=== PATIENT | male | born 1960 | race Caucasian/White ===

== ENCOUNTER 2021-03-13 15:08 | Emergency (ER) | payer OTHER ==
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
[2021-03-13] MEDS ORDERED: DEXAMETHASONE 10 MG/ML VIAL PO STA (18:01)
[2021-03-13] MEDS ORDERED: CHERRY SYRUP 10 ML UDC PO ONE (18:01)
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
[2021-03-13 18:13] VITALS: BP 149/89
== END 2021-03-13 18:13 | disposition home or self-care (01) ==
LOC: ED 15:08
DX: S39.012A Strain of muscle, fascia and tendon of lower back, initial encounter (principal); V53.5XXA Driver of pick-up truck or van injured in collision with car, pick-up truck or van in traffic accident, initial encounter; Y93.89 Activity, other specified; Y92.410 Unspecified street and highway as the place of occurrence of the external cause
CPT/HCPCS: 72100; 99283; A9270

== ENCOUNTER 2022-05-30 07:17 | Emergency (ER) | payer OTHER ==
[2022-05-30 07:28] VITALS: BP 154/105
--- NOTE | 2022-05-30 07:38 | ED Physician Documentation ---
History of Present Illness - Stated complaint Stated Complaint: HIGH BP - Chief complaint Chief Complaint: General - History obtained from History obtained from: Patient - History of Present Illness Timing: How many days ago (his dog got at his medication bottle on the counter and chewed the bottle. Only a few pills intact. Patient taking them every 3rd day, but concerned bp not controlled. Tried to get appt with PCP but earliest was 15 (2 weeks). Here for short term script.) Review of Systems Cardiac: denies: Chest pain / pressure Respiratory: denies: Dyspnea Musculoskeletal: denies: Extremity swelling PD PAST MEDICAL HISTORY - Past Medical History Past Medical History: Yes Cardiovascular: Hypertension Respiratory: None Neuro: None Endocrine/Autoimmune: None GI: None : None HEENT: None Psych: None Musculoskeletal: None Derm: None - Past Surgical History Past Surgical History: Yes HEENT: Tonsil/Adenoidectomy - Present Medications Home Medications: Ambulatory Orders Medication Instructions Recorded Confirmed Amlodipine Besylate [Norvasc] 10 mg PO DAILY 05/30/22 05/30/22 Amlodipine Besylate [Norvasc] 10 mg PO DAILY 30 Days #30 tablet 05/30/22 amLODIPine [Norvasc] 5 mg PO DAILY 05/30/22 05/30/22 - Allergies Allergies/Adverse Reactions: Allergies Allergy/AdvReac Type Severity Reaction Status Date / Time No Known Drug Allergies Allergy Verified 05/30/22 07:22 - Social History Does the pt smoke?: No Smoking Status: Never smoker Does the pt drink ETOH?: No Does the pt have substance abuse?: No - Immunizations Immunizations are current?: Yes PD ED PE NORMAL - Vitals Vital signs reviewed: Yes - General General: Alert and oriented X 3, No acute distress, Well developed/nourished - Cardiac Cardiac: RRR, No murmur - Respiratory Respiratory: Clear bilaterally - Derm Derm: Normal color, Warm and dry - Extremities Extremities: No edema Results - Vitals Vitals: Oxygen O2 Source Room air PD MEDICAL DECISION MAKING - ED course Complexity details: considered differential (has PCP appt . His dog really did eat his medications. Can give short term Rx. ), d/w patient Departure - Departure Disposition: Home, Self Care Clinical Impression: Hypertension Qualifiers: Hypertension type: unspecified Qualified Code(s): I10 - Essential (primary) hypertension Condition: Stable Record reviewed to determine appropriate education?: Yes Prescriptions: Amlodipine Besylate [Norvasc] 10 mg PO DAILY 30 Days #30 tablet Comments: I sent a prescription for the amlodipine 10 mg tablets to the [facility] pharmacy. I prescribed 32 last you through your coming appointment at least with a few extra. I could not see other prescriptions you had been prescribed so a was not able to provide any for your acid reducing medicine. In the short-term you could use [id number] omeprazole or something. Follow-up with your primary care on the as planned. Return if needed. Regarding your arm discomfort, I think it is probably more positional related to sleep and perhaps just extra use during the day. Range of motion in stretching of the shoulder at night before bed and see how it does. Discharge Date/Time: 05/30/22 08:04
== END 2022-05-30 08:04 | disposition home or self-care (01) ==
LOC: ED 07:17
DX: I10 Essential (primary) hypertension (principal)
CPT/HCPCS: 99282